=== PATIENT | female | born 1955 | race Caucasian/White ===

== ENCOUNTER 2016-06-10 18:23 | Emergency (ER) | payer OTHER ==
[2016-06-10] MEDS ORDERED: DOXYcycline CAP(*) 100 MG PO ONE (20:27)
--- NOTE | 2016-06-10 20:32 | UC ---
General HPI - HPI Summary HPI Summary: FOUND TICK TODAY ON LEFT LEG, TOOK PART OF IT OFF, SOME STILL EMBEDDED. NO RASH NO FEVER. - History of Current Complaint Chief Complaint: UCSkin Stated Complaint: TICK BITE Time Seen by Provider: 06/10/16 19:51 Hx Obtained From: Patient, Family/Collections Clerk Onset/Duration: Sudden Onset, Lasting Hours, Still Present Onset Severity: Mild Current Severity: Mild Associated Signs & Symptoms: Negative: Cough, Dizziness, Diarrhea, Dysuria, Fever, Nausea, Syncope, Trauma, Vomiting - Allergy/Home Medications Allergies/Adverse Reactions: Allergies Allergy/AdvReac Type Severity Reaction Status Date / Time Codeine AdvReac Intermediate Vomiting Verified 06/10/16 19:57 Home Medications: Home Medications Acyclovir CAP* [Zovirax CAP*] PRN 06/10/16 [History] Gaviscon CHEW TAB* 06/10/16 [History] buPROPion TAB* [Wellbutrin TAB*] 300 mg PO 06/10/16 [History] PMH/Surg Hx/FS Hx/Imm Hx Previously Healthy: Yes Endocrine History Of: Denies: Diabetes Cardiovascular History Of: Denies: Hypertension, Pacemaker/ICD Respiratory History Of: Reports: Bronchitis Psychological History Of: Reports: Anxiety - WEANING OFF MEDS, Depression Cancer History Of: Denies: Breast Cancer - Surgical History Surgical History: Yes Surgery Procedure, Year, and Place: heart cath- no stenting 2008- [place] [place]; . sesamoid bone lt foot removal- [place];. anal fissure repair as a child;. wisdom teeth removal, [place] PROCEDURE 2014 - Family History Known Family History: Negative: Blood Disorder - Social History Occupation: Employed Full-time Lives: With Family Alcohol Use: Occasionally Substance Use Type: None Smoking Status (MU): Never Smoked Tobacco Review of Systems Constitutional: Negative Skin: Rash - TICK PARTIALLY EMBEDDED LEFT LEG Eyes: Negative ENT: Negative Respiratory: Negative Cardiovascular: Negative Gastrointestinal: Negative Genitourinary: Negative Motor: Negative Neurovascular: Negative Musculoskeletal: Negative Neurological: Negative Psychological: Negative All Other Systems Reviewed And Are Negative: Yes Physical Exam Triage Information Reviewed: Yes Appearance: Well-Appearing, No Pain Distress, Well-Nourished Vital Signs: Initial Vital Signs Temp 97.4 F 06/10/16 19:51 Pulse 72 06/10/16 19:51 Resp 16 06/10/16 19:51 BP 117/87 06/10/16 19:51 Pulse Ox 100 06/10/16 19:51 Vital Signs Reviewed: Yes Eye Exam: Normal ENT Exam: Normal ENT: Positive: Normal ENT inspection Dental Exam: Normal Neck exam: Normal Neck: Positive: Supple, Nontender, No Lymphadenopathy. Negative: Nuchal Rigidity, Enlarged Nodes @ Respiratory Exam: Normal Respiratory: Positive: Chest non-tender, Lungs clear, Normal breath sounds, No respiratory distress, No accessory muscle use Cardiovascular Exam: Normal Cardiovascular: Positive: RRR, No Murmur, Pulses Normal Abdominal Exam: Normal Musculoskeletal Exam: Normal Musculoskeletal: Positive: Strength Intact, ROM Intact Neurological Exam: Normal Psychological Exam: Normal Skin: Positive: rashes - TICK PARTIALLY EMBEDDED LEFT LEG Procedures - Procedure Summary Procedure Summary: TICK PARTIALLY EMBEDDED LEFT LEG, FRAGMENTS REMOVED USING SPLINTER FORCEPS Course/Dx - Differential Dx - Multi-Symptom Differential Diagnoses: Other - TICK BITE Provider Diagnoses: TICK BITE LEFT LEG. TICK BITE PROPHYLAXIS Discharge - Discharge Plan Condition: Stable Disposition: HOME Patient Education Materials: Tick Bite (ED) Referrals: Kassy Healy NP [Primary Care Provider] -
[2016-06-10 21:47] VITALS: BP 132/82
== END 2016-06-10 20:42 | disposition home or self-care (01) ==
LOC: UCEAST 18:23
DX: S80.852A Superficial foreign body, left lower leg, initial encounter (principal); W57.XXXA Bitten or stung by nonvenomous insect and other nonvenomous arthropods, initial encounter; F41.9 Anxiety disorder, unspecified; F33.9 Major depressive disorder, recurrent, unspecified; Z87.09 Personal history of other diseases of the respiratory system; Z88.5 Allergy status to narcotic agent
CPT/HCPCS: 99212; A9270-GY; G0463

== ENCOUNTER 2016-06-30 06:11 | Day surgery (SDC) | payer OTHER ==
[~2016-06-30 06:11] MED LIST: Buffered Lidocaine 1% SYR 3ML* 3 ML/SYR SYRINGE INTRADERM ONE
[2016-06-30 06:47] LABS: Hematocrit 40 % (35-47); Hemoglobin 13.5 g/dl (12.0-16.0); Mean Corpuscular HGB Conc 34 g/dl (31-36); Mean Corpuscular Hemoglobin 30 pg (27-31); Mean Corpuscular Volume 90 fL (80-97); Mean Platelet Volume 7 um3 (7.4-10.4); Red Blood Count 4.46 10^6/ul (4.0-5.4); Red Cell Distribution Width 13 % (10.5-15); White Blood Count 5.4 10^3/ul (3.5-10.8)
[2016-06-30] MEDS ORDERED: Ferric Subsulfate* 8 ML BTL ONE (07:20)
[2016-06-30] MEDS ORDERED: Iodine Strong (LUGOL'S)* 14 ML BTL ONE (07:20)
[2016-06-30] MEDS ORDERED: Acetic Acid 0.25%* 250 ML BTL ONE (07:21)
[2016-06-30] MEDS ORDERED: Midazolam* 1 MG/ML 2 ML VIAL (2 MG) ONE ×2 (07:25→08:10)
[2016-06-30] MEDS ORDERED: fentaNYL* 50 MCG/ML 2 ML VIAL (100 MCG VIAL) ONE ×3 (07:25→09:16)
[2016-06-30] MEDS ORDERED: VASOPRESSIN 20 UNITS/ML 1 ML VIAL ONE (07:40)
[2016-06-30] MEDS ORDERED: Ondansetron INJ* 2 MG/ML VIAL IV PRN (07:50)
[2016-06-30] MEDS ORDERED: Acetaminophen TAB* 325 MG PO PRN (07:50)
[2016-06-30] MEDS ORDERED: PROCHLORPERAZINE INJ 5 MG/ML 2 ML VIAL IV PRN (07:50)
[2016-06-30] MEDS ORDERED: DiMENhydriNATE IV* 50 MG/ML VIAL IV PUSH PRN (07:50)
[2016-06-30] MEDS ORDERED: Ondansetron INJ* 2 MG/ML VIAL ONE (07:59)
[2016-06-30] MEDS ORDERED: Famotidine IV* 10 MG/ML 2 ML (20 mg) ONE (07:59)
[2016-06-30] MEDS ORDERED: Dexamethasone IV* 4 MG/ML 1 ML (4 MG) ONE (07:59)
[2016-06-30] MEDS ORDERED: Ketorolac INJ* 30 MG/ML 1 ML VIAL ONE (07:59)
[2016-06-30] MEDS ORDERED: Lidocaine 2% PF * 5 ML VIAL ONE (07:59)
[2016-06-30] MEDS ORDERED: Propofol* 10 MG/ML 20 ML BTL IV PUSH ONE ×2 (07:59→08:15)
[2016-06-30] MEDS ORDERED: Lidocaine 1% INJ* 10 MG/ML 30 ML SDV ONE (08:51)
[2016-06-30] MEDS ORDERED: Desflurane* 240 ML INH ONE (09:10)
[2016-06-30] MEDS ORDERED: Acetaminophen TAB* 325 MG ONE (09:17)
[2016-06-30] MEDS: fentaNYL* 50 MCG/ML 2 ML VIAL (100 MCG VIAL) IV PRN ×2 (09:18→09:25)
[2016-06-30] MEDS ORDERED: oxyCODONE/Acetamin 5/325 MG* TAB PO PRN (09:25)
[2016-06-30] MEDS ORDERED: oxyCODONE/Acetamin 5/325 MG* TAB ONE (09:43)
[2016-06-30 10:19] VITALS: BP 134/82
--- NOTE | 2016-06-30 12:31 | OP ---
DATE OF OPERATION: 06/30/16 [facility] DATE OF : 57 SURGEON: Benoit Wilkins MD ANESTHESIOLOGIST: Dr. Grey. ANESTHESIA: General endotracheal anesthesia. PRE-OP DIAGNOSES: Cervical dysplasia, cervical stenosis. POST-OP DIAGNOSES: Cervical dysplasia, cervical stenosis. OPERATIVE PROCEDURE: Dilation of the cervix, colposcopy, Gaxiola cone biopsy, endocervical curettage. ESTIMATED BLOOD LOSS: Minimal, less than 20 cc. FINDINGS: Midline cervix, retroverted uterus. The cervical os was extremely stenotic but was eventually able to be dilated. There were no acetowhite changes noted. No abnormal vessel seen. No other findings. COMPLICATIONS: None. COUNTS: Sponge, lap, and needle count were correct x2. CONDITION: The patient was brought to recovery room awake and in stable condition. DESCRIPTION OF PROCEDURE: The patient was brought to the operating room. When general anesthesia was found to be adequate, an exam under anesthesia was performed. A weighted speculum was placed in the vagina and the anterior lip of the cervix was grasped with a single-tooth tenaculum. No cervical os was visualized. Using the lacrimal dilators and then a series of small graduated dilators and an os finder, the cervical os was eventually found. Confirmation with bedside ultrasound by Dr. Betancourt to confirm that it was in the cervix was done. At that point, colposcopy was performed with the above findings noted and then a Gaxiola cone biopsy size large was done. The cone biopsy was in one piece with a cut at 12 o'clock. Endocervical curettage was then performed, that specimen was sent to pathology. Hemostasis was achieved with rollerball cautery and Monsel's solution. Excellent hemostasis was achieved. For the cone biopsy, a coated speculum replaced the weighted speculum and the tenaculum was removed with the cone biopsy portion of the surgery. All instruments were removed from the vagina. The patient was brought to the recovery room, awake, and in stable condition. [id number]/[facility] #: [id number] MTDD
== END 2016-06-30 10:32 | disposition home or self-care (01) ==
LOC: OR 06:11
PROVIDERS: ATTEND Obstetrics & Gynecology
DX: N87.0 Mild cervical dysplasia (principal); N88.2 Stricture and stenosis of cervix uteri; J45.909 Unspecified asthma, uncomplicated; G47.33 Obstructive sleep apnea (adult) (pediatric)
CPT/HCPCS: 36415; 85025; 86850; 86900; 86901; 88305; 88307; A9270-GY; J1100; J1885; J2001; J2250; J2405; J2704; J3010